=== PATIENT | male | born 1995 | race Caucasian/White ===

== ENCOUNTER 2016-06-24 14:29 | Emergency (ER) | payer OTHER ==
[2016-06-24 14:58] VITALS: BP 126/66
--- NOTE | 2016-06-24 15:43 | UC ---
Throat Pain/Nasal Derik HPI - HPI Summary HPI Summary: 1) ONE WEEK OF LEFT SIDED NASAL SWELLING, AND CONGESTION. BELIEVES HE HAD PIMPLE INSIDE OF NOSE AND PICKED IT; SHORTLY AFTER THAT TIME HAS HAD SWELLING AND TENDERNESS IN NOSTRIL OF LEFT NOSE. CONGESTED, UNABLE TO BLOW NOSE ON LEFT SIDE. BOTH EARS HAVE FELT FULL, WONDERS IF THEY HAVE WAX ON THEM. 2) LAST FOUR DAYS AFTER GOLFING AND PUTTING ARM IN [place]GL[place], HAS HAD SMALL RASH ON RIGHT FOREARM. NO TICK BITES. NO INSECT BITES. NO TRAUMA. NO PREVIOUS HISTORY OF SAME. NO FEVER. - History of Current Complaint Chief Complaint: UCGeneralIllness Stated Complaint: EARS,SINUS COMPLAINTS Time Seen by Provider: 06/24/16 14:52 Hx Obtained From: Patient Onset/Duration: Gradual Onset, Lasting Weeks, Still Present Severity: Mild Pain Intensity: 0 Pain Scale Used: 0-10 Numeric Cough: None Associated Signs & Symptoms: Positive: Sinus Discomfort, Nasal Discharge, Rash - RIGHYT FOREARM - Epiglottits Risk Factors Epiglottis Risk Factors: Negative - Allergies/Home Medications Allergies/Adverse Reactions: Allergies Allergy/AdvReac Type Severity Reaction Status Date / Time No Known Allergies Allergy Verified 06/24/16 14:53 PMH/Surg Hx/FS Hx/Imm Hx Previously Healthy: Yes Endocrine History Of: Denies: Diabetes, Thyroid Disease, Hyperthyroidism, Hypothyroidism, Dyslipidemia Cardiovascular History Of: Denies: Cardiac Disorders, Hypertension, Pacemaker/ICD Respiratory History Of: Denies: COPD, Asthma GI/ History Of: Denies: Gastroesophageal Reflux, Ulcer, Gastrointestinal Bleed, Gall Bladder Disease, Kidney Stones, Diverticulitis, Renal Disease, Urosepsis Neurological History Of: Denies: Seizures Psychological History Of: Denies: Anxiety, Depression, Bipolar Disorder, Schizophrenia, Post Traumatic Stress Disorder Cancer History Of: Denies: Lung Cancer, Colorectal Cancer, Breast Cancer, Prostate Cancer, Cervical Cancer - Surgical History Surgical History: None - Family History Known Family History: Positive: None Negative: Hypertension, Respiratory Disease - Social History Occupation: Student Lives: With Family Alcohol Use: Occasionally Substance Use Type: None Smoking Status (MU): Never Smoked Tobacco Type: Cigarettes Have You Smoked in the Last Year: Yes Household Exposure Type: Cigarettes - Immunization History Most Recent Influenza Vaccination: 2016 Most Recent Tetanus Shot: 2013 Review of Systems Constitutional: Negative Skin: Rash - SMALL RASH RIGH FOREARM Eyes: Negative ENT: Ear Ache, Nasal Discharge Respiratory: Negative Cardiovascular: Negative Gastrointestinal: Negative Genitourinary: Negative Motor: Negative Neurovascular: Negative Musculoskeletal: Negative Neurological: Negative Psychological: Negative All Other Systems Reviewed And Are Negative: Yes Physical Exam Triage Information Reviewed: Yes Appearance: Well-Appearing, No Pain Distress, Well-Nourished Vital Signs: Initial Vital Signs Temp 98.4 F 06/24/16 14:53 Pulse 62 06/24/16 14:53 Resp 18 06/24/16 14:53 BP 126/66 06/24/16 14:53 Pulse Ox 97 06/24/16 14:53 Eye Exam: Normal Eyes: Positive: Conjunctiva Clear ENT: Positive: Pharynx normal, Nasal congestion, TMs normal, Other: - LEFT NARES HAS ENLARGED BOGGY TURBINATE Dental Exam: Normal Neck exam: Normal Neck: Positive: Supple, Nontender, No Lymphadenopathy. Negative: Nuchal Rigidity, Tenderness @ Respiratory Exam: Normal Respiratory: Positive: Chest non-tender, Lungs clear, Normal breath sounds, No respiratory distress Cardiovascular Exam: Normal Cardiovascular: Positive: RRR, No Murmur, Pulses Normal Abdominal Exam: Normal Musculoskeletal Exam: Normal Musculoskeletal: Positive: Strength Intact, ROM Intact Neurological Exam: Normal Psychological Exam: Normal Psychological: Positive: Normal Response To Family Skin: Positive: rashes - 2CM X 1CM MILD ERRETHEMA EXCORIATED RASH Throat Pain/Nasal Course/Dx - Course Course Of Treatment: AUGMENTIN PRESCRIBED FOR LEFT NARES TURBINATE EDEMA AND SINUSITIS. PATIENT ADVISED TO TREAT CONTACT DERMATITIS OF RIGHT FOREARM WITH OTC STEROID CREAM. - Differential Dx/Diagnosis Differential Diagnosis/HQI/PQRI: Sinusitis, URI Provider Diagnoses: RHINOSINUSITIS. CONTACT DERMATITIS RIGHT FOREARM Discharge - Discharge Plan Condition: Stable Disposition: HOME Prescriptions: Amoxicillin/Clavulanate TAB* [Augmentin TAB 875*] 875 mg PO BID #20 tab Patient Education Materials: Cellulitis (ED), Rhinosinusitis (ED) Referrals: Preston Wang MD [Medical Doctor] - [facility] BRISEIDA Estrella [Primary Care Provider] -
== END 2016-06-24 15:25 | disposition home or self-care (01) ==
LOC: UCEAST 14:29
DX: J32.9 Chronic sinusitis, unspecified (principal); L25.9 Unspecified contact dermatitis, unspecified cause
CPT/HCPCS: 99212; G0463

== ENCOUNTER 2017-10-20 16:34 | Emergency (ER) | payer OTHER ==
--- NOTE | 2017-10-20 16:55 | ED ---
Lower Extremity - HPI Summary HPI Summary: 21-year-old male presents with right ankle injury today. He states he stepped off the curb and rolled his ankle. He inverted it. He denies any previous fracture to the area. He denies any numbness or tingling. He denies any other injury. He has been drinking. He denies any head injury or loss consciousness. He states he has minimal pain due to alcohol. - History of Current Complaint Chief Complaint: EDExtremityLower Stated Complaint: RT ANKLE INJURY Time Seen by Provider: 10/20/17 16:47 Pain Intensity: 2 - Allergies/Home Medications Allergies/Adverse Reactions: Allergies Allergy/AdvReac Type Severity Reaction Status Date / Time No Known Allergies Allergy Verified 06/24/16 14:53 Home Medications: Home Medications Fluorometholone 0.1% OPTH.CHATO* [Fml 0.1% Opth.susp*] 1 drop BOTH EYES DAILY [History Confirmed 10/20/17] PMH/Surg Hx/FS Hx/Imm Hx Endocrine/Hematology History: Denies: Hx Diabetes, Hx Thyroid Disease Cardiovascular History: Denies: Hx Hypertension, Hx Pacemaker/ICD Respiratory History: Denies: Hx Asthma, Hx Chronic Obstructive Pulmonary Disease (COPD), Hx Lung Cancer GI History: Denies: Hx Gall Bladder Disease, Hx Gastrointestinal Bleed, Hx Ulcer, Hx Urosepsis History: Denies: Hx Kidney Stones, Hx Renal Disease Sensory History: Denies: Hx Hearing Aid Neurological History: Denies: Hx Seizures Psychiatric History: Denies: Hx Anxiety, Hx Depression, Hx Panic Disorder, Hx Schizophrenia, Hx Bipolar Disorder Infectious Disease History: No Infectious Disease History: Denies: Hx Clostridium Difficile, Hx Hepatitis, Hx Human Immunodeficiency Virus (HIV), Hx of Known/Suspected MRSA, Hx Shingles, Hx Tuberculosis, Hx Known/ Suspected VRE, Hx Known/Suspected VRSA, History Other Infectious Disease, Traveled Outside the [place] in Last 30 Days - Family History Known Family History: Positive: None Negative: Hypertension, Respiratory Disease - Social History Alcohol Use: Occasionally Alcohol Amount: 5 beers today Substance Use Type: Reports: None Smoking Status (MU): Never Smoked Tobacco Type: Cigarettes Have You Smoked in the Last Year: Yes Review of Systems Negative: Fever Negative: Chest Pain Negative: Shortness Of Breath Positive: Myalgia - right ankle pain All Other Systems Reviewed And Are Negative: Yes Physical Exam Triage Information Reviewed: Yes Vital Signs On Initial Exam: Initial Vitals Temp Pulse Resp BP Pulse Ox 100.4 F 102 20 146/100 98 10/20/17 16:37 10/20/17 16:37 10/20/17 16:37 10/20/17 16:37 10/20/17 16:37 Vital Signs Reviewed: Yes Appearance: Positive: Well-Appearing Skin: Positive: Warm, Dry Head/Face: Positive: Normal Head/Face Inspection Eyes: Positive: Normal, Conjunctiva Clear ENT: Positive: Pharynx normal Respiratory/Lung Sounds: Positive: Clear to Auscultation, Breath Sounds Present Cardiovascular: Positive: Normal, RRR Musculoskeletal: Positive: Limited @ - right ankle, Edema Right - lateral malleolus, Other - minimal tenderness lateral malleolus, good pulses, sensation grossly intact, capillary refill<2 secs Neurological: Positive: Normal Psychiatric: Positive: Normal Procedures - Splinting Location: right ankle Hand-Made Type: orthoglass Splint: posterior walking Pre-Proc Neuro Vasc Exam: normal Post-Proc Neuro Vasc Exam: normal Diagnostics - Vital Signs Vital Signs Temp Pulse Resp BP Pulse Ox 10/20/17 16:37 100.4 F 102 20 146/100 98 - Laboratory Lab Statement: Any lab studies that have been ordered have been reviewed, and results considered in the medical decision making process. - Radiology ankle Xray Interpretation: Positive (See Comments) - IMPRESSION: Consider lateral supporting ligament injury. Radiology Interpretation Completed By: Radiologist Lower Extremity Course/Dx - Course Course Of Treatment: 21-year-old male presents with right ankle injury today. He states he stepped off the curb and rolled his ankle. He inverted it. He denies any previous fracture to the area. He denies any numbness or tingling. He denies any other injury. He has been drinking. He denies any head injury or loss consciousness. He states he has minimal pain due to alcohol. On exam has edema noted to the lateral aspect of her ankle. Neurovascularly intact. xrays shows no fracture but possible ligament injury may have occurred. gave crutches and harris and gel splint. will have follow up with orthopedicas likely ligament damage with all of the swelling. patient understand and agrees with plan. - Diagnoses Differential Diagnosis/HQI/PQRI: Positive: Fracture (Closed), Sprain, Strain Provider Diagnoses: Right ankle injury Discharge - Sign-Out/Discharge Documenting (check all that apply): Discharge/Admit/Transfer - Discharge Plan Condition: Good Disposition: HOME Patient Education Materials: Ankle Sprain (ED) Referrals: Josh Morton MD [Medical Doctor] - Additional Instructions: Stay off ankle Ice, elevate, keep in HARRSI Ibuprofen or tyenlol every 6 hours for pain Follow up with ortho Return to ED if develop or any new or worsening symptoms - Billing Disposition and Condition Condition: GOOD Disposition: HOME
--- NOTE | 2017-10-20 17:22 | RAD ---
Indication: RIGHT ankle pain and swelling lateral aspect following rolling injury. Comparison: No relevant prior exams available on the [facility] P[facility] for comparison. Technique: AP, mortise, and lateral views RIGHT ankle. Report: Severe soft tissue swelling over the lateral malleolus and less marked at the anterior aspect. Talocrural joint effusion. No conspicuous fracture. Normal articular alignment. Os trigonum accessory ossicle. IMPRESSION: Consider lateral supporting ligament injury.
[2017-10-20 18:11] VITALS: BP 154/92
== END 2017-10-20 17:51 | disposition home or self-care (01) ==
LOC: ED 16:34
DX: S99.911A Unspecified injury of right ankle, initial encounter (principal); W10.1XXA Fall (on)(from) sidewalk curb, initial encounter; Y92.9 Unspecified place or not applicable
CPT/HCPCS: 99282